=== PATIENT | female | born 1970 | race African-American/Black ===

== ENCOUNTER 2017-06-08 10:04 | Inpatient (IN) | payer MEDICARE, OTHER ==
[~2017-06-08] VITALS: Ht 162.6 cm; Wt 77.6 kg
[~2017-06-08 10:04] MED LIST: LITH5CAP; OXYC-662; PERCOCET; TRAZ1POW
[2017-06-08] MEDS ORDERED: SODIUM CHLORIDE 0.9% 1,000 ML IV ONE ×3 (10:14→14:35)
[2017-06-08 10:38] LABS: BG BASE EXCESS -3.1 mmol/L (-2.0-2.0); BG CARBOXYHEMOGLOBIN 0.9 % (0.5-1.5); BG DEOXYHEMOGLOBIN 0.3 % (0.0-5.0); BG METHEMOGLOBIN 0.6 % (0.0-1.5); BG OXYGEN SATURATION 99.7 % (92.0-98.5); BG OXYHEMOGLOBIN 98.2 % (94.0-97.0); BG PCO2 35.2 mmHg (35.0-45.0); BG PH 7.393 (7.350-7.450); BG PO2 364.1 mmHg (75.0-100.0); BG SAMPLE SITE RIGHT BRACHIAL; BG VENT MODE MASK - NRB
[2017-06-08] MEDS ORDERED: LIDOCAINE HCL/PF 1% 10 MG/ML 5ML VIAL ONE (10:56)
[2017-06-08] MEDS ORDERED: ACETAMINOPHEN 650MG SUPP PR ONE (11:15)
[2017-06-08] MEDS ORDERED: VANCOMYCIN 1 G PREMIX 200 ML IV SCH (11:15)
[2017-06-08] MEDS ORDERED: PIPERACILLIN/TAZ 3.375G PREMIX 50 ML IV ONE (11:15)
[2017-06-08 11:22] LABS: CLARITY URINE CLOUDY (CLEAR); COLOR URINE DARK YELLOW (YELLOW); KETONES URINE TRACE (NEGATIVE); LEUKOCYTE ESTERASE URINE 1+ (NEGATIVE); NITRITE URINE NEGATIVE (NEGATIVE); OCCULT BLOOD URINE NEGATIVE (NEGATIVE); PH URINE 5.5 (4.5-8.0); PROTEIN URINE 2+ (NEGATIVE); SPECIFIC GRAVITY URINE 1.026 (1.005-1.030)
[2017-06-08 12:07] LABS: *AMPHETAMINES SCREEN URINE NEGATIVE (NEGATIVE); *BARBITURATES SCREEN URINE NEGATIVE (NEGATIVE); *BENZODIAZEPINES SCREEN URINE NEGATIVE (NEGATIVE); *COCAINE SCREEN URINE NEGATIVE (NEGATIVE); METHADONE URINE SCREEN NEGATIVE (NEGATIVE); OPIATES URINE SCREEN NEGATIVE (NEGATIVE)
[2017-06-08 12:08] LABS: CANNABINOID URINE SCREEN NEGATIVE (NEGATIVE); PHENCYCLIDINE URINE SCREEN NEGATIVE (NEGATIVE)
[2017-06-08 12:39] LABS: HEMATOCRIT. 30.7 % (36.0-48.0); HEMOGLOBIN. 9.8 g/dL (12.0-16.0); MEAN CORPUSCULAR HEMOGLOBIN 26.8 pg (28.0-32.0); MEAN CORPUSCULAR VOLUME 84.2 fL (81.0-99.0); MEAN PLATELET VOLUME 11.4 fl (7.4-10.4); PLATELET 168 x1000/uL (130-400); RED BLOOD CELL COUNT 3.65 mill/uL (4.2-5.4); RED CELL DISTRIBUTION WIDTH 14.7 % (11.6-14.6)
[2017-06-08 12:45] LABS: INR 1.1
[2017-06-08 12:50] LABS: CHLORIDE 112 mEq/L (98-107)
[2017-06-08 12:57] LABS: ETHANOL BLOOD < 10 mg/dL
[2017-06-08 13:01] LABS: CREATINE KINASE 51 IU/L (26-192)
[2017-06-08 13:10] LABS: CARBAMAZEPINE < 0.5 ug/mL (4-12); PHENOBARBITAL < 2.1 ug/mL (15.0-40.0); VALPROIC ACID < 3.0 ug/mL (50-100)
[2017-06-08] MEDS ORDERED: KCL 20MEQ/100ML PREMIX 100 ML IV ONE (13:15)
[2017-06-08] MEDS ORDERED: DEXT 5%/0.45% NACL KCL 10MEQ/L 1,000 ML IV SCH (14:02)
[2017-06-08] MEDS ORDERED: DIPHENHYDRAMINE 50MG/ML VIAL IV PRN (14:15)
[2017-06-08] MEDS ORDERED: ONDANSETRON HCL 4MG/2ML VIAL IV PRN (14:15)
[2017-06-08] MEDS ORDERED: HYDROCODONE/ACETAMINOPHEN 5/325MG TABLET PO PRN (14:15)
[2017-06-08] MEDS ORDERED: DOCUSATE SODIUM 100MG CAPSULE PO PRN (14:15)
[2017-06-08] MEDS ORDERED: CLONIDINE 0.1MG TABLET PO PRN (14:15)
[2017-06-08] MEDS ORDERED: IPRATROPIUM/ALBUTEROL 0.5-3(2.5)MG/3ML NEB INH PRN (14:15)
[2017-06-08] MEDS ORDERED: GUAIFENESIN 200MG/10ML SUGAR FREE UDC PO PRN (14:15)
[2017-06-08 14:16] LABS: AMMONIA 72 uMol/L (<32)
[2017-06-08 15:15] VITALS: BP 105/76
[2017-06-08 16:02] VITALS: BP 102/68
[2017-06-08] MEDS ORDERED: KCL 10MEQ/50ML PREMIX 50 ML IV SCH (16:30)
[2017-06-08] MEDS ORDERED: LEVOFLOXACIN 500MG PREMIX 100 ML IV SCH (17:00)
[2017-06-08 18:00] VITALS: BP 118/64
[2017-06-08 20:00] VITALS: BP 81/54
[2017-06-08] MEDS ORDERED: SODIUM CHLORIDE 0.9% 1000ML BAG (SEPSIS BOLUS) IV NR (21:00)
[2017-06-08] MEDS: MIDODRINE HCL 2.5MG TABLET PO SCH (21:30)
[2017-06-08] MEDS: DEXT 5%/0.45% NACL KCL 10MEQ/L 1,000 ML IV SCH (21:33)
[2017-06-08 22:00] VITALS: BP 104/59
[2017-06-08] MEDS ORDERED: PHENYLEPHRINE 10 MG in DEXT 5% WATER 249 ML IV PRN (22:00)
[2017-06-09] VITALS (71 sets, daily range): BP systolic 87–124; BP diastolic 46–93
[2017-06-09] MEDS: DEXT 5%/0.45% NACL KCL 10MEQ/L 1,000 ML IV SCH (05:22)
[2017-06-09] MEDS: MIDODRINE HCL 2.5MG TABLET PO SCH ×3 (05:23→21:34)
[2017-06-09] MEDS: AMLODIPINE 10MG TABLET PO SCH (09:00)
[2017-06-09] MEDS: PHENYLEPHRINE 40 MG in DEXT 5% WATER 246 ML IV PRN (09:16)
[2017-06-09 10:03] LABS: BG BASE EXCESS -6.5 mmol/L (-2.0-2.0); BG CARBOXYHEMOGLOBIN 0.5 % (0.5-1.5); BG DEOXYHEMOGLOBIN 3.7 % (0.0-5.0); BG FRACTION INSPIRED OXYGEN 26; BG HCO3 ACT 18.1 mmol/L (22.0-26.0); BG METHEMOGLOBIN 0.1 % (0.0-1.5); BG OXYGEN SATURATION 96.3 % (92.0-98.5); BG OXYHEMOGLOBIN 95.7 % (94.0-97.0); BG PCO2 33.1 mmHg (35.0-45.0); BG PH 7.356 (7.350-7.450); BG PO2 82.8 mmHg (75.0-100.0); BG SAMPLE SITE RIGHT RADIAL; BG TOTAL HEMOGLOBIN 12.1 g/dL (12.0-18.0); BG VENT MODE NASAL CANNULA
[2017-06-09 10:05] LABS: BASOPHILS % 0.1 % (0.0-2.0); EOSINOPHILS % 0.1 % (0.0-5.0); HEMATOCRIT. 35.8 % (36.0-48.0); HEMOGLOBIN. 11.2 g/dL (12.0-16.0); LYMPHOCYTES % 7.3 % (20.0-50.0); MEAN CORPUSCULAR HEMOGLOBIN 26.4 pg (28.0-32.0); MEAN CORPUSCULAR VOLUME 84.1 fL (81.0-99.0); MEAN PLATELET VOLUME 11.7 fl (7.4-10.4); MONOCYTES % 2.8 % (2.0-8.0); NEUTROPHILS % 89.7 % (40.0-76.0); PLATELET 134 x1000/uL (130-400); RED BLOOD CELL COUNT 4.26 mill/uL (4.2-5.4); RED CELL DISTRIBUTION WIDTH 15.2 % (11.6-14.6)
[2017-06-09 10:26] LABS: CHLORIDE 113 mEq/L (98-107)
[2017-06-09 11:11] LABS: T4 FREE 1.01 ng/dL (0.76-1.46)
[2017-06-09] MEDS ORDERED: KCL 20MEQ/100ML PREMIX 100 ML IV ONE (11:30)
[2017-06-09] MEDS ORDERED: POTASSIUM CHLORIDE INJ 40 MEQ in DEXT 5% WATER 250 ML IV NR (13:00)
[2017-06-09] MEDS: DEXT 5%/0.45% NACL KCL 40MEQ/L 1,000 ML IV SCH ×2 (13:11→22:12)
[2017-06-09] MEDS ORDERED: MAGNESIUM 2 G PREMIX 50 ML IV NR (13:30)
[2017-06-09] MEDS: LACTULOSE 20G/30ML UDC PO SCH ×2 (15:04→21:33)
[2017-06-09] MEDS ORDERED: LEVOFLOXACIN 250MG PREMIX 50 ML IV SCH (16:00)
[2017-06-09] MEDS: LEVOFLOXACIN 500MG PREMIX 100 ML IV SCH (18:04)
[2017-06-10] VITALS (91 sets, daily range): BP systolic 65–160; BP diastolic 26–93
[2017-06-10 02:39] LABS: CHLORIDE 117 mEq/L (98-107)
[2017-06-10] MEDS: LACTULOSE 20G/30ML UDC PO SCH ×3 (05:42→22:53)
[2017-06-10] MEDS: MIDODRINE HCL 2.5MG TABLET PO SCH ×3 (05:42→22:53)
[2017-06-10] MEDS: PHENYLEPHRINE 40 MG in DEXT 5% WATER 246 ML IV PRN (06:24)
[2017-06-10] MEDS: AMLODIPINE 10MG TABLET PO SCH (08:22)
[2017-06-10] MEDS: DEXT 5%/0.45% NACL KCL 40MEQ/L 1,000 ML IV SCH ×2 (08:23→18:26)
[2017-06-10 11:16] LABS: BASOPHILS % 0.1 % (0.0-2.0); EOSINOPHILS % 0.6 % (0.0-5.0); HEMATOCRIT. 33.7 % (36.0-48.0); HEMOGLOBIN. 11.2 g/dL (12.0-16.0); LYMPHOCYTES % 9.9 % (20.0-50.0); MEAN CORPUSCULAR HEMOGLOBIN 27.3 pg (28.0-32.0); MEAN CORPUSCULAR VOLUME 82.5 fL (81.0-99.0); MEAN PLATELET VOLUME 11.1 fl (7.4-10.4); MONOCYTES % 3.1 % (2.0-8.0); NEUTROPHILS % 86.3 % (40.0-76.0); PLATELET 111 x1000/uL (130-400); RED BLOOD CELL COUNT 4.09 mill/uL (4.2-5.4); RED CELL DISTRIBUTION WIDTH 15.5 % (11.6-14.6)
[2017-06-10 12:32] LABS: VITAMIN B12 SERUM 822 pg/mL (211-911)
[2017-06-10] MEDS ORDERED: IPRATROPIUM/ALBUTEROL 0.5-3(2.5)MG/3ML NEB HHN PRN (16:45)
[2017-06-10] MEDS: LEVOFLOXACIN 500MG PREMIX 100 ML IV SCH (17:00)
[2017-06-10] MEDS: IPRATROPIUM/ALBUTEROL 0.5-3(2.5)MG/3ML NEB HHN SCH (21:18)
[2017-06-11] VITALS (41 sets, daily range): BP systolic 88–118; BP diastolic 44–93
[2017-06-11] MEDS: IPRATROPIUM/ALBUTEROL 0.5-3(2.5)MG/3ML NEB HHN SCH ×4 (01:22→21:41)
[2017-06-11] MEDS: DEXT 5%/0.45% NACL KCL 40MEQ/L 1,000 ML IV SCH ×4 (05:00→15:54)
[2017-06-11] MEDS: LACTULOSE 20G/30ML UDC PO SCH ×3 (05:28→22:10)
[2017-06-11] MEDS: MIDODRINE HCL 2.5MG TABLET PO SCH ×3 (05:29→22:07)
[2017-06-11 06:01] LABS: EOSINOPHILS % 0.4 % (0.0-5.0); HEMATOCRIT. 34.9 % (36.0-48.0); HEMOGLOBIN. 11.5 g/dL (12.0-16.0); LYMPHOCYTES % 12.3 % (20.0-50.0); MEAN CORPUSCULAR HEMOGLOBIN 27.2 pg (28.0-32.0); MEAN CORPUSCULAR VOLUME 82.5 fL (81.0-99.0); MEAN PLATELET VOLUME 10.6 fl (7.4-10.4); MONOCYTES % 5.1 % (2.0-8.0); NEUTROPHILS % 82.2 % (40.0-76.0); PLATELET 81 x1000/uL (130-400); RED BLOOD CELL COUNT 4.23 mill/uL (4.2-5.4); RED CELL DISTRIBUTION WIDTH 15.6 % (11.6-14.6)
[2017-06-11 06:28] LABS: CHLORIDE 123 mEq/L (98-107)
[2017-06-11 06:38] LABS: AMMONIA 48 uMol/L (<32)
[2017-06-11] MEDS: AMLODIPINE 10MG TABLET PO SCH (09:00)
[2017-06-11] MEDS ORDERED: POTASSIUM CHLORIDE INJ 40 MEQ in DEXT 5% WATER 250 ML IV NR (10:00)
[2017-06-11] MEDS: CEFAZOLIN 1000MG PREMIX 50 ML IV SCH ×2 (11:27→20:22)
[2017-06-11] MEDS ORDERED: ACETYLCYSTEINE 100MG/ML 10% VIAL 4ML INH SCH (18:00)
[2017-06-11] MEDS ORDERED: LEVOTHYROXINE SODIUM 50MCG TABLET PO NR (18:15)
[2017-06-11] MEDS: PANTOPRAZOLE SODIUM 40 MG/VIAL IV SCH (20:22)
[2017-06-12] VITALS (7 sets, daily range): BP systolic 104–134; BP diastolic 8–80
[2017-06-12] MEDS: DEXT 5%/0.45% NACL KCL 40MEQ/L 1,000 ML IV SCH
[2017-06-12] MEDS: IPRATROPIUM/ALBUTEROL 0.5-3(2.5)MG/3ML NEB HHN SCH (01:36)
[2017-06-12] MEDS: LACTULOSE 20G/30ML UDC PO SCH ×3 (05:37→22:51)
[2017-06-12] MEDS: MIDODRINE HCL 2.5MG TABLET PO SCH ×3 (05:38→22:46)
[2017-06-12 07:15] LABS: PARTIAL THROMBOPLASTIN TIME 23.3 sec (23.4-31.0); PROTHROMBIN TIME 10.7 sec (9.4-11.6)
[2017-06-12 07:53] LABS: AMMONIA 58 uMol/L (<32)
[2017-06-12] MEDS: AMLODIPINE 10MG TABLET PO SCH (08:34)
[2017-06-12] MEDS: PANTOPRAZOLE SODIUM 40 MG/VIAL IV SCH ×2 (08:34→23:25)
[2017-06-12] MEDS ORDERED: PANTOPRAZOLE SODIUM 40 MG/VIAL IV SCH ×2 (09:00→23:15)
[2017-06-12] MEDS: CEFAZOLIN 1000MG PREMIX 50 ML IV SCH ×2 (11:35→23:26)
[2017-06-12] MEDS ORDERED: DILTIAZEM HCL 30MG TABLET NG NR (14:15)
[2017-06-12] MEDS: ACETAMINOPHEN 325MG TABLET PO PRN (14:52)
[2017-06-12] MEDS ORDERED: DIGOXIN 500MCG/2ML AMP IV NR (17:45)
[2017-06-12] MEDS: DILTIAZEM HCL 30MG TABLET NG SCH (18:00)
[2017-06-12] MEDS: ACETAMINOPHEN 650MG/20.3ML UDC NG PRN (21:11)
[2017-06-13] VITALS (14 sets, daily range): BP systolic 100–133; BP diastolic 8–92
[2017-06-13 00:02] LABS: HEMATOCRIT 39.5 % (36.0-48.0); MEAN CORPUSCULAR HEMOGLOBIN 27.2 pg (28.0-32.0); MEAN CORPUSCULAR VOLUME 82.4 fL (81.0-99.0); PLATELET 63 x1000/uL (130-400); RED CELL DISTRIBUTION WIDTH 15.5 % (11.6-14.6)
[2017-06-13 00:09] LABS: CHLORIDE 130 mEq/L (98-107)
[2017-06-13] MEDS: DILTIAZEM HCL 30MG TABLET NG SCH ×5 (03:43→23:55)
[2017-06-13] MEDS: CEFAZOLIN 1000MG PREMIX 50 ML IV SCH ×2 (06:37→12:14)
[2017-06-13] MEDS: LACTULOSE 20G/30ML UDC PO SCH ×3 (06:43→22:52)
[2017-06-13] MEDS: MIDODRINE HCL 2.5MG TABLET PO SCH ×3 (06:45→22:54)
[2017-06-13] MEDS: DEXT 5%/0.45% NACL KCL 40MEQ/L 1,000 ML IV SCH ×2 (07:00→17:00)
[2017-06-13] MEDS: ACETAMINOPHEN 325MG TABLET PO PRN (09:04)
[2017-06-13] MEDS: AMLODIPINE 10MG TABLET PO SCH (09:05)
[2017-06-13 12:25] LABS: BASOPHILS % 0.1 % (0.0-2.0); EOSINOPHILS % 0.4 % (0.0-5.0); HEMATOCRIT. 35.9 % (36.0-48.0); HEMOGLOBIN. 11.8 g/dL (12.0-16.0); LYMPHOCYTES % 31.2 % (20.0-50.0); MEAN CORPUSCULAR HEMOGLOBIN 26.4 pg (28.0-32.0); MEAN CORPUSCULAR VOLUME 80.6 fL (81.0-99.0); MONOCYTES % 10.5 % (2.0-8.0); NEUTROPHILS % 57.8 % (40.0-76.0); PLATELET 72 x1000/uL (130-400); RED BLOOD CELL COUNT 4.46 mill/uL (4.2-5.4); RED CELL DISTRIBUTION WIDTH 14.9 % (11.6-14.6)
[2017-06-13 12:41] LABS: LDL CHOLESTEROL 32 mg/dL (5-100)
[2017-06-13 12:42] LABS: HDL CHOLESTEROL 12 mg/dL (40-59)
[2017-06-13 12:43] LABS: T4 FREE 0.87 ng/dL (0.76-1.46)
[2017-06-13] MEDS: METOPROLOL TARTRATE 25MG TABLET PO SCH (15:12)
[2017-06-13 15:51] LABS: CREATINE KINASE 74 IU/L (26-192)
[2017-06-13 15:52] LABS: CREATINE KINASE MB FRACTION 0.6 ng/mL (0.5-3.6)
[2017-06-13 16:28] LABS: UCG SCREEN NEGATIVE
[2017-06-13] MEDS: CEFEPIME 1,000 MG in DEXTROSE 5% WATER 50 ML IV SCH (16:49)
[2017-06-13] MEDS: POLYVINYL ALCOHOL OPHTH DROPS 15ML BOTHEYE SCH ×3 (16:49→23:55)
[2017-06-13] MEDS: METRONIDAZOLE 500 MG PREMIX 100 ML IV SCH ×2 (16:49→23:54)
[2017-06-13] MEDS ORDERED: IOHEXOL-300 100 ML BOTTLE ONE (18:14)
[2017-06-13] MEDS ORDERED: METOPROLOL TARTRATE 25MG TABLET PO SCH (21:00)
[2017-06-13] MEDS: ACETAMINOPHEN 650MG/20.3ML UDC NG PRN (23:59)
[2017-06-14] VITALS (18 sets, daily range): BP systolic 97–120; BP diastolic 58–86
[2017-06-14 00:32] LABS: CREATINE KINASE MB FRACTION < 0.5 ng/mL (0.5-3.6)
[2017-06-14 00:33] LABS: CREATINE KINASE 47 IU/L (26-192)
[2017-06-14] MEDS: CEFEPIME 1,000 MG in DEXTROSE 5% WATER 50 ML IV SCH ×2 (03:33→16:36)
[2017-06-14] MEDS ORDERED: ACETAMINOPHEN 650MG SUPP PR PRN (05:00)
[2017-06-14] MEDS: MIDODRINE HCL 2.5MG TABLET PO SCH ×3 (05:57→21:30)
[2017-06-14] MEDS: LACTULOSE 20G/30ML UDC PO SCH ×2 (05:57→13:43)
[2017-06-14] MEDS: POLYVINYL ALCOHOL OPHTH DROPS 15ML BOTHEYE SCH ×4 (05:57→23:54)
[2017-06-14] MEDS: DILTIAZEM HCL 30MG TABLET NG SCH ×5 (05:57→23:55)
[2017-06-14 06:47] LABS: HEMATOCRIT 34.4 % (36.0-48.0); HEMOGLOBIN 11.4 g/dL (12.0-16.0); MEAN CORPUSCULAR HEMOGLOBIN 26.8 pg (28.0-32.0); MEAN CORPUSCULAR VOLUME 81.2 fL (81.0-99.0); PLATELET 89 x1000/uL (130-400); RED BLOOD CELL COUNT 4.23 mill/uL (4.2-5.4); RED CELL DISTRIBUTION WIDTH 15.7 % (11.6-14.6)
[2017-06-14 07:01] LABS: CHLORIDE 129 mEq/L (98-107)
[2017-06-14 07:15] LABS: CREATINE KINASE 72 IU/L (26-192)
[2017-06-14 07:16] LABS: CREATINE KINASE MB FRACTION < 0.5 ng/mL (0.5-3.6)
[2017-06-14] MEDS: METRONIDAZOLE 500 MG PREMIX 100 ML IV SCH ×2 (08:17→21:28)
[2017-06-14] MEDS: METOPROLOL TARTRATE 25MG TABLET PO SCH ×3 (08:20→21:00)
[2017-06-14] MEDS: AMLODIPINE 10MG TABLET PO SCH (08:21)
[2017-06-14] MEDS: LACTOBACILLUS GG CAPSULE PO SCH (08:33)
[2017-06-14] MEDS: DEXTROSE 5% WATER 1,000 ML IV SCH ×2 (09:53→21:28)
[2017-06-14 11:20] LABS: INR 1.3; PARTIAL THROMBOPLASTIN TIME 24.8 sec (23.4-31.0); PROTHROMBIN TIME 13.4 sec (9.4-11.6)
[2017-06-14 11:30] LABS: AMMONIA 20 uMol/L (<32)
[2017-06-15] VITALS (22 sets, daily range): BP systolic 98–129; BP diastolic 49–81
[2017-06-15] MEDS: CEFEPIME 1,000 MG in DEXTROSE 5% WATER 50 ML IV SCH ×2 (04:52→15:40)
[2017-06-15] MEDS: MIDODRINE HCL 2.5MG TABLET PO SCH ×3 (06:00→22:04)
[2017-06-15] MEDS: DILTIAZEM HCL 30MG TABLET NG SCH ×3 (06:00→19:14)
[2017-06-15] MEDS: POLYVINYL ALCOHOL OPHTH DROPS 15ML BOTHEYE SCH ×3 (06:05→18:43)
[2017-06-15 06:56] LABS: INR 1.1; PARTIAL THROMBOPLASTIN TIME 25.1 sec (23.4-31.0)
[2017-06-15 07:13] LABS: AMMONIA 29 uMol/L (<32)
[2017-06-15 07:32] LABS: CHLORIDE 122 mEq/L (98-107)
[2017-06-15] MEDS: METRONIDAZOLE 500 MG PREMIX 100 ML IV SCH ×2 (08:07→22:05)
[2017-06-15] MEDS: METOPROLOL TARTRATE 25MG TABLET PO SCH ×2 (09:00→22:04)
[2017-06-15] MEDS: AMLODIPINE 10MG TABLET PO SCH (09:00)
[2017-06-15] MEDS: LACTULOSE 20G/30ML UDC PO SCH (09:00)
[2017-06-15] MEDS: LACTOBACILLUS GG CAPSULE PO SCH (09:00)
[2017-06-15 10:09] LABS: MEAN CORPUSCULAR HEMOGLOBIN 26.1 pg (28.0-32.0); MEAN CORPUSCULAR VOLUME 79.9 fL (81.0-99.0); MEAN PLATELET VOLUME 11.6 fl (7.4-10.4); PLATELET 174 x1000/uL (130-400); RED BLOOD CELL COUNT 3.63 mill/uL (4.2-5.4); RED CELL DISTRIBUTION WIDTH 14.9 % (11.6-14.6)
[2017-06-15 10:14] LABS: HEMOGLOBIN. 9.5 g/dL (12.0-16.0)
[2017-06-15] MEDS: DEXTROSE 5% WATER 1,000 ML IV SCH (13:51)
[2017-06-15 15:18] LABS: CLARITY URINE TURBID (CLEAR); COLOR URINE YELLOW (YELLOW); KETONES URINE NEGATIVE (NEGATIVE); LEUKOCYTE ESTERASE URINE 3+ (NEGATIVE); NITRITE URINE NEGATIVE (NEGATIVE); OCCULT BLOOD URINE TRACE (NEGATIVE); PROTEIN URINE NEGATIVE (NEGATIVE); SPECIFIC GRAVITY URINE 1.016 (1.005-1.030); UROBILINOGEN URINE 0.2 E.U./dL (0.2-1.0)
[2017-06-15] MEDS ORDERED: MIDAZOLAM HCL 5 MG/5 ML VIAL IV PRN (17:09)
[2017-06-15] MEDS ORDERED: FENTANYL CITRATE/PF 50MCG/ML 2ML VIAL ONE (17:12)
[2017-06-15] MEDS ORDERED: MIDAZOLAM HCL 5 MG/5 ML VIAL ONE (17:12)
[2017-06-15 19:04] LABS: PLATELET ESTIMATE NORMAL
[2017-06-16] VITALS (22 sets, daily range): BP systolic 86–122; BP diastolic 40–72
[2017-06-16] MEDS: POLYVINYL ALCOHOL OPHTH DROPS 15ML BOTHEYE SCH ×4 (00:39→18:19)
[2017-06-16] MEDS: CEFEPIME 1,000 MG in DEXTROSE 5% WATER 50 ML IV SCH ×2 (04:31→15:40)
[2017-06-16] MEDS: DEXTROSE 5% WATER 1,000 ML IV SCH ×3 (04:32→21:52)
[2017-06-16] MEDS: DILTIAZEM HCL 30MG TABLET NG SCH ×4 (06:00→18:26)
[2017-06-16] MEDS: MIDODRINE HCL 2.5MG TABLET PO SCH ×3 (06:34→21:49)
[2017-06-16] MEDS: METOPROLOL TARTRATE 25MG TABLET PO SCH ×2 (09:00→21:50)
[2017-06-16] MEDS: AMLODIPINE 10MG TABLET PO SCH (09:00)
[2017-06-16] MEDS: LACTULOSE 20G/30ML UDC PO SCH (09:51)
[2017-06-16] MEDS: LACTOBACILLUS GG CAPSULE PO SCH (09:52)
[2017-06-16] MEDS: METRONIDAZOLE 500 MG PREMIX 100 ML IV SCH ×2 (09:55→21:51)
[2017-06-16 11:03] LABS: HEMATOCRIT. 26.1 % (36.0-48.0); HEMOGLOBIN. 8.7 g/dL (12.0-16.0); MEAN CORPUSCULAR HEMOGLOBIN 26.3 pg (28.0-32.0); MEAN CORPUSCULAR VOLUME 79.1 fL (81.0-99.0); RED CELL DISTRIBUTION WIDTH 14.9 % (11.6-14.6)
[2017-06-16 11:04] LABS: PLATELET 273 x1000/uL (130-400)
[2017-06-16 11:27] LABS: NUCLEATED RED BLOOD CELLS 2 /100 WBC
[2017-06-16 11:28] LABS: PLATELET ESTIMATE NORMAL
[2017-06-16] MEDS: FLUCONAZOLE 200MG TABLET PO SCH (14:15)
[2017-06-17] VITALS (12 sets, daily range): BP systolic 96–115; BP diastolic 49–72
[2017-06-17] MEDS: DILTIAZEM HCL 30MG TABLET NG SCH ×5 (00:44→17:46)
[2017-06-17] MEDS: POLYVINYL ALCOHOL OPHTH DROPS 15ML BOTHEYE SCH ×4 (00:45→17:47)
[2017-06-17] MEDS: CEFEPIME 1,000 MG in DEXTROSE 5% WATER 50 ML IV SCH ×2 (03:39→14:54)
[2017-06-17] MEDS: MIDODRINE HCL 2.5MG TABLET PO SCH ×3 (05:58→22:26)
[2017-06-17 07:23] LABS: HEMATOCRIT. 24.5 % (36.0-48.0); HEMOGLOBIN. 8.1 g/dL (12.0-16.0); MEAN CORPUSCULAR HEMOGLOBIN 26.1 pg (28.0-32.0); MEAN CORPUSCULAR VOLUME 79.2 fL (81.0-99.0); MEAN PLATELET VOLUME 10.4 fl (7.4-10.4); PLATELET 351 x1000/uL (130-400); RED CELL DISTRIBUTION WIDTH 14.3 % (11.6-14.6)
[2017-06-17 07:43] LABS: CHLORIDE 114 mEq/L (98-107)
[2017-06-17] MEDS ORDERED: POTASSIUM CHLORIDE 20MEQ/PACKET NG NR (08:30)
[2017-06-17] MEDS: DEXTROSE 5% WATER 1,000 ML IV SCH ×2 (08:31→17:00)
[2017-06-17] MEDS: METRONIDAZOLE 500 MG PREMIX 100 ML IV SCH ×2 (08:32→20:03)
[2017-06-17] MEDS: AMLODIPINE 10MG TABLET PO SCH (09:00)
[2017-06-17] MEDS ORDERED: KCL 20MEQ/100ML PREMIX 100 ML IV NR (09:00)
[2017-06-17] MEDS: METOPROLOL TARTRATE 25MG TABLET PO SCH ×2 (09:00→21:00)
[2017-06-17] MEDS ORDERED: KCL 10MEQ/50ML PREMIX 50 ML IV SCH ×2 (10:00)
[2017-06-17] MEDS ORDERED: KCL 20MEQ/100ML PREMIX 100 ML IV SCH (10:00)
[2017-06-17 10:25] LABS: PLATELET ESTIMATE NORMAL
[2017-06-17] MEDS: LACTOBACILLUS GG CAPSULE PO SCH (11:55)
[2017-06-17] MEDS: FLUCONAZOLE 200MG TABLET PO SCH (11:55)
[2017-06-17] MEDS: LACTULOSE 20G/30ML UDC PO SCH (11:55)
[2017-06-18] VITALS (15 sets, daily range): BP systolic 96–113; BP diastolic 47–68
[2017-06-18] MEDS: POLYVINYL ALCOHOL OPHTH DROPS 15ML BOTHEYE SCH ×4 (00:59→18:19)
[2017-06-18] MEDS: DEXTROSE 5% WATER 1,000 ML IV SCH ×2 (03:12→12:43)
[2017-06-18] MEDS: CEFEPIME 1,000 MG in DEXTROSE 5% WATER 50 ML IV SCH ×2 (03:14→15:34)
[2017-06-18] MEDS: DILTIAZEM HCL 30MG TABLET NG SCH ×4 (05:54→18:00)
[2017-06-18] MEDS: MIDODRINE HCL 2.5MG TABLET PO SCH ×3 (05:56→21:52)
[2017-06-18 06:31] LABS: HEMATOCRIT. 21.7 % (36.0-48.0); HEMOGLOBIN. 7.2 g/dL (12.0-16.0); MEAN CORPUSCULAR HEMOGLOBIN 26.6 pg (28.0-32.0); MEAN CORPUSCULAR VOLUME 80.4 fL (81.0-99.0); MEAN PLATELET VOLUME 9.8 fl (7.4-10.4); PLATELET 398 x1000/uL (130-400); RED CELL DISTRIBUTION WIDTH 14.5 % (11.6-14.6)
[2017-06-18 07:52] LABS: CHLORIDE 113 mEq/L (98-107)
[2017-06-18] MEDS: FLUCONAZOLE 200MG TABLET PO SCH (08:12)
[2017-06-18] MEDS: METRONIDAZOLE 500 MG PREMIX 100 ML IV SCH ×2 (08:12→21:52)
[2017-06-18] MEDS: LACTOBACILLUS GG CAPSULE PO SCH (08:12)
[2017-06-18] MEDS: LACTULOSE 20G/30ML UDC PO SCH (08:12)
[2017-06-18] MEDS: METOPROLOL TARTRATE 25MG TABLET PO SCH ×2 (08:13→21:00)
[2017-06-18] MEDS: AMLODIPINE 10MG TABLET PO SCH (08:13)
[2017-06-18 09:43] LABS: PLATELET ESTIMATE NORMAL
[2017-06-18] MEDS ORDERED: POTASSIUM CHLORIDE 20MEQ TABLET SR PO NR (11:30)
[2017-06-18] MEDS ORDERED: KCL 20MEQ/100ML PREMIX 100 ML IV NR (12:45)
[2017-06-18] MEDS ORDERED: MAGNESIUM 1 G PREMIX 100 ML IV NR (15:00)
== END 2017-06-19 00:05 | DRG 871 ==
LOC: ER 10:21 → EDBEDREQTM 13:37 → EDBEDREQ 13:37 → EDBEDREQSVC 13:38 → ENRESERV 13:51 → CANRESERV 13:53 → SUPCPDRO 13:58 → ENRESERV 14:08 → 5EST 15:13 → CVICU 06-09 06:00 → 8WST 06-11 23:02 → 3WST 06-12 20:36
PROVIDERS: ADMIT Hospitalist; ATTEND Hospitalist
PROC: 02HV33Z Insertion of Infusion Device into Superior Vena Cava, Percutaneous Approach (ICD-10-PCS; 2017-06-08)
PROC: B548ZZA Ultrasonography of Superior Vena Cava, Guidance (ICD-10-PCS; 2017-06-08)
PROC: 4A00X4Z Measurement of Central Nervous Electrical Activity, External Approach (ICD-10-PCS; 2017-06-09)
PROC: 0DJ08ZZ Inspection of Upper Intestinal Tract, Via Natural or Artificial Opening Endoscopic (ICD-10-PCS; principal; 2017-06-15 15:30)
PROC: 4A00X4Z Measurement of Central Nervous Electrical Activity, External Approach (ICD-10-PCS; 2017-06-17)
DX: A41.9 Sepsis, unspecified organism (principal); J96.00 Acute respiratory failure, unspecified whether with hypoxia or hypercapnia; R65.21 Severe sepsis with septic shock; E46 Unspecified protein-calorie malnutrition; E72.20 Disorder of urea cycle metabolism, unspecified; D69.6 Thrombocytopenia, unspecified; E83.42 Hypomagnesemia; G92 Toxic encephalopathy; N17.9 Acute kidney failure, unspecified; E87.0 Hyperosmolality and hypernatremia; E87.2 Acidosis; K56.7 Ileus, unspecified; E87.1 Hypo-osmolality and hyponatremia; B37.49 Other urogenital candidiasis; I47.1 Supraventricular tachycardia; K44.9 Diaphragmatic hernia without obstruction or gangrene; B96.20 Unspecified Escherichia coli [E. coli] as the cause of diseases classified elsewhere; R74.0 Nonspecific elevation of levels of transaminase and lactic acid dehydrogenase [LDH]; L98.419 Non-pressure chronic ulcer of buttock with unspecified severity; E03.9 Hypothyroidism, unspecified; D64.9 Anemia, unspecified; G89.4 Chronic pain syndrome; E87.6 Hypokalemia; F31.9 Bipolar disorder, unspecified; G62.9 Polyneuropathy, unspecified; F20.9 Schizophrenia, unspecified; G31.9 Degenerative disease of nervous system, unspecified; K29.60 Other gastritis without bleeding; I10 Essential (primary) hypertension; K72.90 Hepatic failure, unspecified without coma; K76.0 Fatty (change of) liver, not elsewhere classified; M19.90 Unspecified osteoarthritis, unspecified site; R13.12 Dysphagia, oropharyngeal phase; M21.371 Foot drop, right foot; M21.372 Foot drop, left foot; Z90.49 Acquired absence of other specified parts of digestive tract; Z74.01 Bed confinement status; Z98.84 Bariatric surgery status; Z88.8 Allergy status to other drugs, medicaments and biological substances; Z68.29 Body mass index [BMI] 29.0-29.9, adult
CPT/HCPCS: 36415; 36569; 36600; 70450; 70551; 71045; 74018; 74177; 76700; 76937; 80048; 80053; 80061; 80076; 80156; 80165; 80184; 80185; 80305; 81003; 81025; 82140; 82375; 82550; 82553; 82607; 82805; 82962; 83036; 83605; 83690; 83735; 83880; 84134; 84439; 84443; 84484; 85025; 85027; 85379; 85610; 85730; 86850; 86900; 86920; 87040; 87077; 87086; 87106; 87186; 87493; 87804; 92610; 93005; 93306; 93970; 94640; 96374; 96375; 99291; A6261; C1725; C9113; G0482; J0690; J0692; J1160; J1200; J1956; J2250; J2370; J2543; J3010; J3370; J3475; J3480; J3490; J7030; J7040; J7042; J7050; J7060; J7070; J7608; J7620; Q9967; A4315

== ENCOUNTER 2017-12-30 20:48 | Inpatient (IN) | payer MEDICARE, OTHER ==
[~2017-12-30] VITALS: Ht 165.1 cm; Wt 50.1 kg
[~2017-12-30 20:48] MED LIST changes: +ETOMIDATE 2MG/ML 10ML VIAL IV ONE; -LITH5CAP; -OXYC-662; -PERCOCET; +SUCCINYLCHOLINE CHLORIDE 200MG/10ML IV ONE; -TRAZ1POW
[2017-12-30] MEDS ORDERED: SODIUM CHLORIDE 0.9% 2,000 ML IV ONE (21:09)
[2017-12-30] MEDS ORDERED: PIPERACILLIN/TAZ 3.375G PREMIX 50 ML IV ONE (21:15)
[2017-12-30] MEDS ORDERED: VANCOMYCIN 1 G PREMIX 200 ML IV ONE (21:15)
[2017-12-30] MEDS ORDERED: DEXTROSE 50% WATER 50ML SYRINGE IV ONE (21:20)
[2017-12-31] VITALS (76 sets, daily range): BP systolic 57–145; BP diastolic 20–109
[2017-12-31 02:14] LABS: CHLORIDE 108 mEq/L (98-107)
[2017-12-31] MEDS ORDERED: MORPHINE SULFATE 4 MG/ML CPJ (NOT FOR IM USE) IV ONE ×2 (02:18→03:15)
[2017-12-31 03:01] LABS: HEMATOCRIT. 26.1 % (36.0-48.0); HEMOGLOBIN. 8.6 g/dL (12.0-16.0); MEAN CORPUSCULAR HEMOGLOBIN 26.9 pg (28.0-32.0); MEAN CORPUSCULAR VOLUME 81.4 fL (81.0-99.0); MEAN PLATELET VOLUME 7.3 fl (7.4-10.4); PLATELET 215 x1000/uL (130-400); RED BLOOD CELL COUNT 3.21 mill/uL (4.2-5.4); RED CELL DISTRIBUTION WIDTH 15.3 % (11.6-14.6)
[2017-12-31 03:14] LABS: INR 1.3; PROTHROMBIN TIME 12.6 sec (9.1-11.1)
[2017-12-31] MEDS ORDERED: POTASSIUM CHLORIDE INJ 40 MEQ in DEXT 5% WATER 250 ML IV ONE ×4 (03:15)
[2017-12-31] MEDS ORDERED: CALCIUM GLUCONATE 100MG/ML 10ML VIAL IV ONE (03:15)
[2017-12-31] MEDS ORDERED: DEXTROSE 50% WATER 50ML SYRINGE IV ONE (03:15)
[2017-12-31] MEDS ORDERED: SODIUM CHLORIDE 0.9% 3,000 ML IV NR (03:15)
[2017-12-31] MEDS ORDERED: PROPOFOL 10MG/ML 100ML 100 ML IV SCH (03:15)
[2017-12-31] MEDS ORDERED: NOREPINEPHRINE 4MG/250ML PMX 250 ML IV ONE (03:15)
[2017-12-31 04:52] LABS: PLATELET ESTIMATE NORMAL
[2017-12-31 06:06] LABS: BG BASE EXCESS -6.5 mmol/L (-2.0-2.0); BG CARBOXYHEMOGLOBIN 0.2 % (0.5-1.5); BG DEOXYHEMOGLOBIN 0.4 % (0.0-5.0); BG FRACTION INSPIRED OXYGEN 100; BG HCO3 ACT 16.6 mmol/L (22.0-26.0); BG METHEMOGLOBIN 0.3 % (0.0-1.5); BG OXYGEN SATURATION 99.6 % (92.0-98.5); BG OXYHEMOGLOBIN 99.1 % (94.0-97.0); BG PCO2 25.2 mmHg (35.0-45.0); BG PH 7.436 (7.350-7.450); BG PO2 > 602.7 mmHg (75.0-100.0); BG SAMPLE SITE RIGHT RADIAL; BG TIDAL VOLUME(mL) 375 mL; BG VENT MODE VENT - A/C; BG VENT RATE 16 set
[2017-12-31] MEDS ORDERED: SODIUM CHLORIDE 0.9% 1,000 ML IV SCH (06:15)
[2017-12-31 08:25] LABS: CLARITY URINE CLOUDY (CLEAR); COLOR URINE YELLOW (YELLOW); KETONES URINE TRACE (NEGATIVE); LEUKOCYTE ESTERASE URINE TRACE (NEGATIVE); NITRITE URINE NEGATIVE (NEGATIVE); OCCULT BLOOD URINE 3+ (NEGATIVE); PROTEIN URINE TRACE (NEGATIVE); SPECIFIC GRAVITY URINE 1.015 (1.005-1.030)
[2017-12-31] MEDS: PANTOPRAZOLE SODIUM 40 MG/VIAL IV SCH (08:29)
[2017-12-31] MEDS: NOREPINEPHRINE 8 MG in DEXT 5% WATER 242 ML IV PRN ×2 (08:30→15:06)
[2017-12-31] MEDS ORDERED: NYSTATIN POWDER 15GM TOP SCH (09:00)
[2017-12-31] MEDS ORDERED: SODIUM BICARBONATE 8.4% 1 MEQ/ML 50ML SYR IV NR (09:15)
[2017-12-31] MEDS ORDERED: KCL 20MEQ/100ML PREMIX 100 ML IV NR (09:30)
[2017-12-31] MEDS ORDERED: LEVOFLOXACIN 750MG PREMIX 150 ML IV SCH ×2 (09:30→11:00)
[2017-12-31 09:36] LABS: BG BASE EXCESS -13.3 mmol/L (-2.0-2.0); BG CARBOXYHEMOGLOBIN 0.3 % (0.5-1.5); BG DEOXYHEMOGLOBIN 0.9 % (0.0-5.0); BG FRACTION INSPIRED OXYGEN 50; BG HCO3 ACT 10.6 mmol/L (22.0-26.0); BG METHEMOGLOBIN 0.4 % (0.0-1.5); BG OXYGEN SATURATION 99.1 % (92.0-98.5); BG OXYHEMOGLOBIN 98.4 % (94.0-97.0); BG PH 7.341 (7.350-7.450); BG PO2 248.3 mmHg (75.0-100.0); BG SAMPLE SITE RIGHT BRACHIAL; BG TIDAL VOLUME(mL) 375 mL; BG TOTAL HEMOGLOBIN 10.2 g/dL (12.0-18.0); BG VENT MODE VENT - A/C; BG VENT RATE 14 set
[2017-12-31] MEDS ORDERED: PHENYLEPHRINE 20 MG in DEXT 5% WATER 248 ML IV PRN (10:00)
[2017-12-31 10:49] LABS: HEMOGLOBIN. 8.6 g/dL (12.0-16.0); MEAN CORPUSCULAR VOLUME 81.2 fL (81.0-99.0); MEAN PLATELET VOLUME 7.1 fl (7.4-10.4); PLATELET 322 x1000/uL (130-400); RED BLOOD CELL COUNT 3.33 mill/uL (4.2-5.4)
[2017-12-31] MEDS: METRONIDAZOLE 500 MG PREMIX 100 ML IV SCH ×2 (11:05→17:13)
[2017-12-31] MEDS ORDERED: SODIUM CHLORIDE 0.9% 500 ML IV ONE ×2 (11:15→11:49)
[2017-12-31 11:21] LABS: CHLORIDE 114 mEq/L (98-107)
[2017-12-31 11:27] LABS: CLARITY URINE TURBID (CLEAR); COLOR URINE ORANGE (YELLOW); KETONES URINE NEGATIVE (NEGATIVE); LEUKOCYTE ESTERASE URINE 2+ (NEGATIVE); NITRITE URINE POSITIVE (NEGATIVE); OCCULT BLOOD URINE 2+ (NEGATIVE); PROTEIN URINE 1+ (NEGATIVE); SPECIFIC GRAVITY URINE 1.023 (1.005-1.030)
[2017-12-31 11:30] LABS: CREATINE KINASE 55 IU/L (26-192); HDL CHOLESTEROL 19 mg/dL (40-59); LDL CHOLESTEROL 104 mg/dL (5-100); PHOSPHORUS 2.2 mg/dL (2.5-4.9); TOTAL IRON BINDING CAPACITY 45 ug/dL (250-450)
[2017-12-31 11:36] LABS: CREATINE KINASE MB FRACTION 3.2 ng/mL (0.5-3.6)
[2017-12-31 11:54] LABS: *AMPHETAMINES SCREEN URINE NEGATIVE (NEGATIVE); *BARBITURATES SCREEN URINE NEGATIVE (NEGATIVE); *BENZODIAZEPINES SCREEN URINE NEGATIVE (NEGATIVE); *COCAINE SCREEN URINE NEGATIVE (NEGATIVE); CANNABINOID URINE SCREEN NEGATIVE (NEGATIVE); METHADONE URINE SCREEN NEGATIVE (NEGATIVE); PHENCYCLIDINE URINE SCREEN NEGATIVE (NEGATIVE)
[2017-12-31 12:04] LABS: OPIATES URINE SCREEN PRESUMTIVE POSITIVE (NEGATIVE)
[2017-12-31] MEDS: DEXT 5%/0.45% NACL KCL 10MEQ/L 1,000 ML IV SCH (12:32)
[2017-12-31] MEDS: NYSTATIN POWDER 15GM TOP SCH ×2 (12:33→16:50)
[2017-12-31] MEDS: IPRATROPIUM/ALBUTEROL 0.5-3(2.5)MG/3ML NEB HHN PRN ×2 (12:35→18:23)
[2017-12-31] MEDS ORDERED: POTASSIUM CHLORIDE 20MEQ TABLET SR PO NR (13:00)
[2017-12-31 13:03] LABS: NUCLEATED RED BLOOD CELLS 1 /100 WBC; PLATELET ESTIMATE NORMAL
[2017-12-31] MEDS ORDERED: DEXTROSE 50% WATER 50ML SYRINGE IV NR (13:15)
[2017-12-31] MEDS ORDERED: POTASSIUM CHLORIDE 20MEQ/PACKET PO NR ×2 (13:30→18:00)
[2017-12-31] MEDS ORDERED: MAGNESIUM 4 G PREMIX 100 ML IV NR (14:00)
[2017-12-31] MEDS ORDERED: POTASSIUM PHOS,M-BASIC-D-BASIC 15 MMOL in DEXT 5% WATER 245 ML IV NR (14:00)
[2017-12-31] MEDS: IPRATROPIUM/ALBUTEROL 0.5-3(2.5)MG/3ML NEB HHN SCH ×2 (14:42→19:59)
[2017-12-31] MEDS: PHENYLEPHRINE 40 MG in DEXT 5% WATER 246 ML IV PRN ×2 (14:50→17:25)
[2017-12-31] MEDS ORDERED: DEXTROSE 50% WATER 50ML SYRINGE IV PRN (15:00)
[2017-12-31] MEDS: BLOOD SUGAR DIAGNOSTIC STRIP TEST SCH ×2 (16:49→21:18)
[2017-12-31] MEDS ORDERED: CEFTRIAXONE 2 G in DEXTROSE 5% WATER 50 ML IV SCH (18:00)
[2017-12-31] MEDS ORDERED: MORPHINE SULFATE 4 MG/ML CPJ (NOT FOR IM USE) IV PRN (19:30)
[2017-12-31] MEDS ORDERED: LORAZEPAM 2MG/ML CPJ IV PRN (19:30)
[2017-12-31] MEDS ORDERED: NOREPINEPHRINE 32 MG in DEXT 5% WATER 468 ML IV PRN (20:15)
[2017-12-31] MEDS ORDERED: PHENYLEPHRINE 80 MG in DEXT 5% WATER 492 ML IV PRN (20:15)
[2018-01-01] VITALS (43 sets, daily range): BP systolic 61–116; BP diastolic 22–94
[2018-01-01] MEDS: DEXT 5%/0.45% NACL KCL 10MEQ/L 1,000 ML IV SCH (00:06)
[2018-01-01] MEDS: PHENYLEPHRINE 80 MG in DEXT 5% WATER 492 ML IV PRN ×2 (01:07→08:15)
[2018-01-01] MEDS: METRONIDAZOLE 500 MG PREMIX 100 ML IV SCH (01:09)
[2018-01-01] MEDS: DOPAMINE 800MG PREMIX 250 ML IV PRN ×3 (01:09→14:42)
[2018-01-01] MEDS: IPRATROPIUM/ALBUTEROL 0.5-3(2.5)MG/3ML NEB HHN SCH ×3 (01:46→12:19)
[2018-01-01] MEDS ORDERED: VANCOMYCIN 750 MG PREMIX 150 ML IV SCH ×2 (04:00→14:00)
[2018-01-01] MEDS: MEROPENEM 500 MG in SODIUM CHLORIDE 0.9% 50 ML IV SCH ×2 (05:03→13:58)
[2018-01-01 05:37] LABS: CHLORIDE 104 mEq/L (98-107)
[2018-01-01 05:38] LABS: BASOPHILS % 0.4 % (0.0-2.0); EOSINOPHILS % 0.1 % (0.0-5.0); HEMATOCRIT. 30.2 % (36.0-48.0); LYMPHOCYTES % 18.7 % (20.0-50.0); MEAN CORPUSCULAR HEMOGLOBIN 26.3 pg (28.0-32.0); MEAN CORPUSCULAR VOLUME 88.2 fL (81.0-99.0); MEAN PLATELET VOLUME 8.3 fl (7.4-10.4); MONOCYTES % 2.7 % (2.0-8.0); NEUTROPHILS % 78.1 % (40.0-76.0); PLATELET 303 x1000/uL (130-400); RED BLOOD CELL COUNT 3.43 mill/uL (4.2-5.4); RED CELL DISTRIBUTION WIDTH 16.7 % (11.6-14.6)
[2018-01-01 05:45] LABS: LDL CHOLESTEROL 82 mg/dL (5-100)
[2018-01-01 05:48] LABS: CREATINE KINASE 178 IU/L (26-192); HDL CHOLESTEROL 23 mg/dL (40-59)
[2018-01-01] MEDS ORDERED: SODIUM BICARBONATE 100 MEQ in SODIUM CHLORIDE 0.45% 1,000 ML IV SCH (06:15)
[2018-01-01] MEDS: BLOOD SUGAR DIAGNOSTIC STRIP TEST SCH ×3 (07:11→16:51)
[2018-01-01] MEDS ORDERED: SODIUM BICARBONATE 8.4% 1 MEQ/ML 50ML SYR IV NR (07:35)
[2018-01-01 08:43] LABS: BG CARBOXYHEMOGLOBIN 0.3 % (0.5-1.5); BG DEOXYHEMOGLOBIN 0.4 % (0.0-5.0); BG FRACTION INSPIRED OXYGEN 100; BG HCO3 ACT 7.9 mmol/L (22.0-26.0); BG METHEMOGLOBIN 0.6 % (0.0-1.5); BG OXYGEN SATURATION 99.6 % (92.0-98.5); BG OXYHEMOGLOBIN 98.7 % (94.0-97.0); BG PCO2 22.2 mmHg (35.0-45.0); BG PH 7.168 (7.350-7.450); BG SAMPLE SITE LEFT BRACHIAL; BG TIDAL VOLUME(mL) 400 mL; BG TOTAL HEMOGLOBIN 8.8 g/dL (12.0-18.0); BG VENT MODE VENT - A/C; BG VENT RATE 14 set
[2018-01-01] MEDS: PANTOPRAZOLE SODIUM 40 MG/VIAL IV SCH (09:57)
[2018-01-01] MEDS: NYSTATIN POWDER 15GM TOP SCH ×2 (09:58→13:00)
[2018-01-01] MEDS ORDERED: SODIUM BICARBONATE 8.4% 1 MEQ/ML 50ML SYR IV SCH (10:45)
[2018-01-01] MEDS ORDERED: SODIUM BICARBONATE 7.5% 0.9 MEQ/ML 50ML SYR IV ONE (14:44)
== END 2018-01-01 17:27 | disposition expired | DRG 871 ==
LOC: ER 20:48 → MICUNO 12-31 03:05 → EDBEDREQTM 12-31 03:11 → EDBEDREQSVC 12-31 03:11 → EDBEDREQDT 12-31 03:11 → EDBEDREQ 12-31 03:11 → ENRESERV 12-31 04:42
PROVIDERS: ADMIT Internal Medicine; ATTEND Internal Medicine
PROC: 0BH17EZ Insertion of Endotracheal Airway into Trachea, Via Natural or Artificial Opening (ICD-10-PCS; 2016-12-31)
PROC: 5A1945Z Respiratory Ventilation, 24-96 Consecutive Hours (ICD-10-PCS; 2017-12-31)
PROC: 06HY33Z Insertion of Infusion Device into Lower Vein, Percutaneous Approach (ICD-10-PCS; 2017-12-31)
PROC: B54CZZA Ultrasonography of Left Lower Extremity Veins, Guidance (ICD-10-PCS; 2017-12-31)
PROC: 06JYXZZ Inspection of Lower Vein, External Approach (ICD-10-PCS; 2017-12-31)
PROC: 5A12012 Performance of Cardiac Output, Single, Manual (ICD-10-PCS; principal; 2018-01-01)
DX: A41.9 Sepsis, unspecified organism (principal); R65.21 Severe sepsis with septic shock; N17.0 Acute kidney failure with tubular necrosis; E43 Unspecified severe protein-calorie malnutrition; G92 Toxic encephalopathy; J96.00 Acute respiratory failure, unspecified whether with hypoxia or hypercapnia; J69.0 Pneumonitis due to inhalation of food and vomit; K72.00 Acute and subacute hepatic failure without coma; N39.0 Urinary tract infection, site not specified; E87.2 Acidosis; Z68.1 Body mass index [BMI] 19.9 or less, adult; M21.372 Foot drop, left foot; M21.371 Foot drop, right foot; E87.6 Hypokalemia; D63.8 Anemia in other chronic diseases classified elsewhere; E87.8 Other disorders of electrolyte and fluid balance, not elsewhere classified; F20.9 Schizophrenia, unspecified; F31.9 Bipolar disorder, unspecified; I10 Essential (primary) hypertension; G89.4 Chronic pain syndrome; R10.9 Unspecified abdominal pain; I46.9 Cardiac arrest, cause unspecified; G62.9 Polyneuropathy, unspecified; E16.2 Hypoglycemia, unspecified; M19.90 Unspecified osteoarthritis, unspecified site; M54.9 Dorsalgia, unspecified; L89.90 Pressure ulcer of unspecified site, unspecified stage; L98.7 Excessive and redundant skin and subcutaneous tissue; Z90.49 Acquired absence of other specified parts of digestive tract; Z98.84 Bariatric surgery status; Z74.01 Bed confinement status; Z87.440 Personal history of urinary (tract) infections; Z88.8 Allergy status to other drugs, medicaments and biological substances
CPT/HCPCS: 31500; 36415; 36556; 36568; 36600; 36680; 71045; 74018; 80048; 80061; 80305; 82140; 82375; 82533; 82550; 82553; 82728; 82805; 82962; 83540; 83550; 83605; 83735; 83880; 84100; 84134; 84145; 84443; 84484; 85044; 85379; 87070; 93005; 93306; 94002; 94003; 94640; 96365; 96366; 96368; 96375; 99291; A6261; C9113; G0482; J0330; J0610; J0696; J1265; J1956; J2185; J2270; J2370; J2543; J3370; J3475; J3480; J3490; J7030; J7040; J7060; J7620; A4315